=== PATIENT | male | born 2000 ===

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

== ENCOUNTER 2024-11-27 11:00 | Emergency (ER) | payer OTHER, SELFPAY ==
[2024-11-27 11:06] VITALS: BP 156/93; PULSE 99; RESP 18; TEMP 36.6; O2SAT 98
--- NOTE | 2024-11-27 11:18 | W.ED.GENAD ---
Discharge Plan Discharge Details Chief Complaint: PsychEval Clinical Impression: Depression Primary Care Provider: Dorcas Valdivia ED Provider: Aiden Tamayo Home Meds and New Rx's Prescriptions: No Action No Known Home Meds HPI General Mode of arrival: ambulatory. Date/Time Provider Initiated Documentation: 11/27/24 11:08. Limitations to Documentation: no limitations. Information obtained by: patient. History of Present Illness 24 year old M presents to the emergency department with the chief complaint of SI, described as moderate, Patient started experiencing this year(s) (3) and it has been constant. No relieving factors improve symptom(s), No exacerbating factors reported . Patient notes denies fever/chills and nausea/vomiting. Patient did receive the following treatments prior to arrival, none Related Data Home Medications ?Medication ?Instructions ?Recorded ?Confirmed Unknown [No Known Home Meds] 11/27/24 11/27/24 Allergies Allergy/AdvReac Type Severity Reaction Status Date / Time No Known Allergies Allergy Unverified 11/27/24 11:09 General Stated Complaint: PsychEval RADHA: 2 Review of Systems All systems reviewed & are unremarkable except as noted in HPI and below Constitutional Constitutional: Denies chills, Denies fever(s) and Denies weakness Cardiovascular Cardiovascular: Denies chest pain and Denies dyspnea Respiratory Respiratory: Denies cough and Denies dyspnea Gastrointestinal Gastrointestinal: Denies abdominal pain and Denies vomiting Neurologic Neurologic: Denies weakness Psychiatric Psychiatric: Denies homicidal ideation and Reports suicidal ideation Exam Const General: no acute distress Orientation: alert HENMT Head: normal to inspection Ears: external ears normal General nose exam: external nose normal Mouth: moist mucous membranes Eyes General: appearance normal, both eyes and all related structures Neck Neck: normal visual inspection Resp Effort & Inspection: normal respiratory effort and able to speak in complete sentences Cardio Rate: regular rate Skin General skin exam: no rashes or lesions noted Neuro General: patient alert and patient oriented x3 Psych Appearance: well kempt Attitude: cooperative Course Vital Signs Vital signs: Vital Signs Temperature 36.6 C 11/27/24 11:06 Pulse 99 H 11/27/24 11:06 Respiratory Rate 18 11/27/24 11:06 Blood Pressure 156/93 H 11/27/24 11:06 Pulse Oximetry 98 11/27/24 11:06 Temperature 36.6 C 11/27/24 11:06 Pulse 99 H 11/27/24 11:06 Respiratory Rate 18 11/27/24 11:06 Blood Pressure 156/93 H 11/27/24 11:06 Pulse Oximetry 98 11/27/24 11:06 Medical Decision Making 24-year-old male with a history of depression and states he has chronic thoughts of wanting to hurt himself comes in with complaints of continued thoughts of wanting hurt himself and has access to firearms and states that he would consider shooting himself. He was screened prehospital by [facility] human services who feels he would benefit from inpatient treatment and currently has agreeable to this. He has not anything to try and harm himself. He is oriented x 4 with a normal gait on arrival in no distress. He has no findings on exam or history to suggest underlying medical process that he is medically cleared to seek psychiatric hospitalization. Differential Diagnosis Differential Diagnosis: depression, si Lab Data Lab results reviewed: Yes I reviewed the patient's lab results. PFSH All Active Problems (Updated 11/27/24 @ 15:31 by Aiden Tamayo MD) Depression (Chronic) Social History Smoking/Tobacco Use Status: Never Smoking risk assessment performed?: Yes Alcohol Intake: current Alcohol Intake frequency: 0-2 drinks per day Alcohol type: hard liquor Drug use: Never Substance use type: does not use Do you feel safe at home: Yes Do you feel safe in your relationship?: Yes PAWSS Have you Been Recently Intoxicated or Drunk Within the Last 30 days?: Yes Have you Ever Experienced Previous Episodes of Alcohol Withdrawal?: No Have you ever Experienced Withdrawal Seizures?: No Have you ever Experienced Delirium Tremens(DT)s?: No Have you ever undergone Alcohol Rehabilitation Treatment (i.e, inpt ot outpatient treatment programs)?: No Have you ever Experienced Blackouts?: No Have you ever Combined Alcohol with other Downers within the last 90 days?: No Have you ever Combined Alcohol with any other Substance of Abuse during the last 90 days?: No Positive Blood Alcohol level on Presentation? [PCS.BAL]: No Evidence of Increased Autonomic Activity (i.e. HR>120, tremor, sweating, agitation, nausea)?: No Result: 1
[2024-11-27 15:05] LABS: Cannabinoids THC Negative (Negative); METHADONE URINE SCREEN Negative (Negative)
--- NOTE | 2024-11-27 15:15 | PDOC.MHCN ---
Date of service: 11/27/24 Time of Service: 10:08 PHQ-9 Over the last 2 weeks, how often have you been bothered by any of the following problems? 1. Little interest or pleasure in doing things: more than half the days 2. Feeling down, depressed, or hopeless: more than half the days 3. Trouble falling or staying asleep, or sleeping too much: more than half the days 4. Feeling tired or having little energy: nearly every day 5. Poor appetite or overeating: more than half the days 6. Feeling bad about yourself - or that you are a failure or have let yourself and your family down: nearly every day 7. Trouble concentrating on things, such as reading the newspaper or watching television: several days 8. Moving or speaking so slowly that other people could have noticed? - Or the opposite - being so fidgety or restless that you have been moving around a lot more than usual: not at all 9. Thoughts that you would be better off or of hurting yourself in some way: nearly every day Total score: 18 If you checked off any problems, how difficult have these problems made it for you to do your work, take care of things at home, or get along with other people?: very difficult PHQ-9 Results: Positive Source: Developed by Drs. Cristian Baltazar, Amelie Pearce, Freddy Fagan and colleagues, with an educational angelia from [employer]. Suicide Severity Rate CSSRS Have you wished you were or wished you could go to sleep and not wake up?: Yes Have you actually had any thoughts of killing yourself?: Yes CSSRS2 Have you been thinking about how you might do this?: Yes Have you had these thoughts and had some intention of acting on them?: No Have you started to work out or worked out the details of how to kill yourself? Do you intend to carry out this plan?: No CSSRS3 Have you ever done anything, started to do anything or prepared to do anything to end your life?: No CSSRS4 Was this within the past three months?: No Screening Score Total Score: 4 Screening: Positive Mental Health Emergency Note Release HS release signed:: Yes Reason for Visit The client is not known to [facility] and reports that he has never been hospitalized. The client reports that he has never received services from a mental health agency in the past. Today probation and parole outreaches and requests a mobile crisis assessment for the client as he is currently endorsing suicidal ideations with plan and intent. This creative writer and PSS Christie's meet with the client in person at probation and parole. In the last 2 weeks has the pt presented for ES prior to today?: No Client Information Client is: New Well Housed: Yes Non Suicidal Self Injury Current: No History: No Safety Risk/Harm to Self or Others Current Ideation to Harm Self or Others: Yes to self. Intent: yes, has intent. Plan: yes,has a plan. History of suicide attempt: No history of suicide attempt reported Risk: Does risk to harm exist?: yes. Access to means: Yes. Types of Means: Firearms and Other weapons. Counseling provided: No Risk: High Risk Asssessment/Mental Status Appearance: Unremarkable Attitude: Guarded Behavior: Unremarkable Speech: Normal Affect: Flat and Cogruent with mood Mood: Stressed, Depressed and Anxious Thought process: Unremarkable Hallucinations: No Delusions: No Attention: Wandering and Poor concentration Perception: Not impaired Orientation: Fully orientated Memory: Intact Insight: Poor Judgement: Poor Neurovegetative Symptoms Sleep: Decrease Appetitie: Decrease Interests: Decrease Energy: Decrease Libido: Not applicable Substance Use: Do you use nicotine?: No Have you used substances in the last 7 days?: No Additional Issues: Assaultive/Threatening Behavior: No Medical Concerns: No Client engaged in active self harm w/weapon: No Threatening to run away: No Child reported abuse/neglect: No Voluntarily presenting for services: Yes Domestic violence is a concern: No Extreme Psychosis or extreme behavior is present: No Impression The client is a single 24 year old male that resides in [place], [place] with his parents. The client identifies as male and uses he/ him pronouns. 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 All screening tools are completed and all under represented categories are honored. The client presents in room at probation and parole and is pacing around the room. The client reports that things have not been going well for him for the past 6 years since he was charged with possession of child pornography and is allegedly being charged with a probation violation this week. The client reports that he has made statements about wanting to shoot himself and has at least 25+ firearms at home. The client reports that he is useless and doesn't have anything to live for. Plan/Disposition Recommended Disposition: Hospitalization No. Plan: The client will be transported to [facility] via probation and parole. The client will remain at [facility] ED pending voluntary admission to an inpatient facility. The client will be re-assessed daily until placement is secured or the client is able to be safety planned back to the community. If the client attempts to leave an should be considered. Person reported agreement to plan: Yes Reports/communication Outcome discussed with: ED/Personnel (Verbal given to [facility] ED staff)
--- NOTE | 2024-11-27 17:09 | ED.PSYCHBOAR ---
Date of service: 11/27/24 Time of Service: 17:09 Psychiatric Border Handoff Update Brief Story: This is a 24-year-old male patient boarding in our emergency department voluntarily for suicidal ideation with plan and means to shoot himself. Prior to my taking over their care, the patient was medically cleared, and has been resting comfortably. They have met with the director of social media marketing and we are awaiting final dispo. They have not required any additional medications for restraint or sedation. They have been admitted to ED psych observation. The patient was accepted to the [facility] during my shift, doc to doc report given to Nguyen Milton. The patient and his parent were updated and did meet with the clean up worker given the parental concern for inpatient treatment. At this time, the patient remains voluntary and amenable to the plan to be transported to [place]. Transport will be arranged for tomorrow morning given limited availability this evening. I signed out care of this patient to the oncoming provider prior to transportation being arranged. Transport paperwork and Discharge summary were completed by me on this shift. No other acute events or behavioral concerns during my shift. Justina Hobson MD Status: voluntary Able to leave: would need physician/CASS and crisis evaluation prior to leaving Behavioral Concerns: None Potential Disposition: Inpatient Medical Concerns: None Mediation Reconciliation performed: Yes Code Status ordered: Yes Diet ordered: Yes Discharge Plan Disposition Patient Disposition: Psychiatric Hospital/Unit Specific Psychiatric Facility: [facility] Condition: Stable Discharge Details Clinical Impression: Depression, Suicidal ideation Primary Care Provider: Dorcas Valdivia ED Provider: Justina Hobson Home Meds and New Rx's Prescriptions: No Action No Known Home Meds Discharge Instructions Instructions: Depression, Adult ED Additional Instructions: You were seen in the emergency department today for evaluation of suicidal ideation and depression. In our department had a full physical examination performed, and you met with a member of the crisis team, who recommended inpatient placement for ongoing mental health care. You were accepted to the [facility], and will be transported to that facility to continue your mental health treatment. Please follow-up with your primary care provider in the next few days to discuss this visit and any symptoms that change, worsen, or persist. Thank you for allowing us to be part of your care.
--- NOTE | 2024-11-28 07:46 | ED.PROG1_ITS ---
Date of service: 11/28/24 Time of Service: 07:46 Psychiatric Border Handoff Update Brief Story: Patient here with SI, voluntary, awaiting placement Status: voluntary Able to leave: would need physician/CASS and crisis evaluation prior to leaving Potential Disposition: [facility] today Medical Concerns: none Mediation Reconciliation performed: Yes Code Status ordered: Yes Diet ordered: Yes Discharge Plan Disposition Patient Disposition: Psychiatric Hospital/Unit Specific Psychiatric Facility: [facility] Condition: Stable Discharge Details Clinical Impression: Depression, Suicidal ideation Primary Care Provider: Dorcas Valdivia ED Provider: Sanjiv Lopez Home Meds and New Rx's Prescriptions: No Action No Known Home Meds Discharge Instructions Instructions: Depression, Adult ED Additional Instructions: You were seen in the emergency department today for evaluation of suicidal ideation and depression. In our department had a full physical examination performed, and you met with a member of the crisis team, who recommended inpatient placement for ongoing mental health care. You were accepted to the [facility], and will be transported to that facility to continue your mental health treatment. Please follow-up with your primary care provider in the next few days to discuss this visit and any symptoms that change, worsen, or persist. Thank you for allowing us to be part of your care.
== END 2024-11-28 08:57 ==
PROVIDERS: Emergency Medicine; Emergency Provider Student in an Organized Health Care Education/Training Program; PCP Nurse Practitioner Family
DX: F32.A Depression, unspecified (principal); R45.851 Suicidal ideations
CPT/HCPCS: 99285 ×2; 00123; 80307; 96127; G0378